=== PATIENT | female | born 1965 | race Caucasian/White ===

== ENCOUNTER → 2022-10-03 | Outpatient (CLI) | payer OTHER ==
--- NOTE | 2022-10-03 11:01 | US ---
EXAMINATION TYPE: US arterial LE single level DATE OF EXAM: 10/03/2022 9:10 AM CLINICAL HISTORY: R23.8 OTHER SKIN CHANGES. feet can turn purple, started 5 years ago, no pain or iss ues walking History of: Smoker: n Hypertension: y Diabetic: y Hyperlipidemia: y TIA/CVA: n Previous Vascular Surgery: n CAD: n MS: n Vascular Ulcers: n Claudication: n Gangrene: n Doppler Waveforms: Right: Multiphasic Left: Multiphasic Right Brachial Pressure: 165 Left Brachial Pressure: 141 Ankle-Brachial Indices: Right: 1.0 Left: 1.0 Toe Brachial Indices: Right: 0.72 Left: 0.54 IMPRESSION: Slightly diminished left sided TBI consistent with mild peripheral arterial disease in t he left foot. Further workup and follow-up advised.
--- NOTE | 2022-10-04 09:04 | MM ---
Reason for Exam: Screening (asymptomatic). Last mammogram was performed 2 year(s) and 5 month(s) ago. Patient History: Menarche at age 10. First Full-Term at age 19. Left ovary removed at age 48. Right ovary removed at age 48. Hysterectomy at age 48. Postmenopausal. Mother had ovarian cancer. Risk Values: Anni 5 year model risk: 1.2%. NCI Lifetime model risk: 6.7%. Prior Study Comparison: 12/16/2017 Bilateral MG 3D screening mammo w/cad, [facility]. 05/02/2020 Bilateral MG 3D screening mammo w/cad, [facility]. Tissue Density: There are scattered fibroglandular densities. Findings: Analyzed By CAD. There is no suspicious group of microcalcifications or new suspicious mass in either breast. Stable asymmetry on the CC view in the left breast posterior depth. Stable chronic nodularity within the right breast. Overall Assessment: Benign, BI-RAD 2 Management: Screening Mammogram of both breasts in 1 year. A clinical breast exam by your physician is recommended on an annual basis and results should be correlated with mammographic findings. Electronically signed and approved by: Rodrigue Kramer D.O.
== END | disposition home or self-care (01) ==
LOC: RADUSWWP 08:36
PROVIDERS: ATTEND Internal Medicine
DX: Z12.31 Encounter for screening mammogram for malignant neoplasm of breast (principal); I73.9 Peripheral vascular disease, unspecified; E11.51 Type 2 diabetes mellitus with diabetic peripheral angiopathy without gangrene; I10 Essential (primary) hypertension; E78.5 Hyperlipidemia, unspecified; R23.8 Other skin changes; Z87.891 Personal history of nicotine dependence; Z86.73 Personal history of transient ischemic attack (TIA), and cerebral infarction without residual deficits; Z78.0 Asymptomatic menopausal state
CPT/HCPCS: 77063; 77067; 93922

== ENCOUNTER → 2024-06-02 | Outpatient (CLI) | payer OTHER ==
--- NOTE | 2024-06-02 13:08 | MM ---
Reason for Exam: Screening (asymptomatic). Last mammogram was performed 1 year(s) and 8 month(s) ago. Patient History: Menarche at age 10. First Full-Term at age 19. Left ovary removed at age 48. Right ovary removed at age 48. Hysterectomy at age 48. Postmenopausal. Mother had ovarian cancer. Risk Values: Anni 5 year model risk: 1.3%. NCI Lifetime model risk: 6.4%. Prior Study Comparison: 12/16/2017 Bilateral MG 3D screening mammo w/cad, [facility]. 05/02/2020 Bilateral MG 3D screening mammo w/cad, [facility]. 10/03/2022 Bilateral MG 3D screening mammo w/cad, [facility]. Tissue Density: The breasts are almost entirely fatty. Findings: Analyzed By CAD. Right breast: There is no suspicious group of microcalcifications or new suspicious mass. Left breast: There is no suspicious group of microcalcifications or new suspicious mass. Overall Assessment: Negative, BI-RAD 1 Management: Screening Mammogram of both breasts in [address] [facility] will attempt to contact patient to return for supplemental views and ultrasound if indicated. Patient should continue monthly self-breast exams. A clinical breast exam by your physician is recommended on an annual basis. This exam should not preclude additional follow-up of suspicious palpable abnormalities. Note on Anni scores and lifetime risk: 1. A Anni score greater than 3% is considered moderate risk. If this is the case, consider specialist referral to assess eligibility for a risk reducing agent. 2. If overall lifetime risk for the development of breast cancer is 20% or higher, the patient may qualify for future screening with alternating mammogram and breast MRI. [facility], , 06/02/2024 1:03 PM. Electronically signed and approved by: Jaun Gorman DO
== END | disposition home or self-care (01) ==
LOC: RADMAMWWP 11:10
PROVIDERS: ATTEND Family Medicine
DX: Z12.31 Encounter for screening mammogram for malignant neoplasm of breast (principal); Z80.41 Family history of malignant neoplasm of ovary; Z90.722 Acquired absence of ovaries, bilateral; Z78.0 Asymptomatic menopausal state
CPT/HCPCS: 77063; 77067